=== PATIENT | female | born 1990 | race Caucasian/White ===

== ENCOUNTER → 2024-02-26 14:20 | Outpatient (REF) | payer OTHER, SELFPAY | LOC: RAD 14:20 | PROVIDERS: ATTENDING PHYSICIAN Nurse Practitioner Family; FAMILY PHYSICIAN Nurse Practitioner Family | DX: O26.851 Spotting complicating pregnancy, first trimester (principal) | CPT/HCPCS: 76801; 76817 ==

== ENCOUNTER → 2024-03-30 06:48 | Outpatient (REF) | payer OTHER, SELFPAY | LOC: PNTC 06:48 | PROVIDERS: ATTENDING PHYSICIAN Obstetrics & Gynecology | DX: Z36.0 Encounter for antenatal screening for chromosomal anomalies (principal); Z36.82 Encounter for antenatal screening for nuchal translucency | CPT/HCPCS: 36415; 76801; 76813 ==

== ENCOUNTER → 2024-05-25 14:46 | Outpatient (REF) | payer OTHER, SELFPAY | LOC: PNTC 14:46 | PROVIDERS: ATTENDING PHYSICIAN Obstetrics & Gynecology | DX: Z34.90 Encounter for supervision of normal pregnancy, unspecified, unspecified trimester (principal); O34.219 Maternal care for unspecified type scar from previous cesarean delivery | CPT/HCPCS: 76811 ==

== ENCOUNTER → 2024-06-30 16:52 | Outpatient (REF) | payer OTHER, SELFPAY | LOC: PNTC 16:52 | PROVIDERS: ATTENDING PHYSICIAN Obstetrics & Gynecology | DX: O09.529 Supervision of elderly multigravida, unspecified trimester (principal); O34.219 Maternal care for unspecified type scar from previous cesarean delivery | CPT/HCPCS: 76816 ==

== ENCOUNTER → 2024-08-11 17:18 | Outpatient (REF) | payer OTHER, SELFPAY | LOC: PNTC 17:18 | PROVIDERS: ATTENDING PHYSICIAN Obstetrics & Gynecology | DX: O09.529 Supervision of elderly multigravida, unspecified trimester (principal); O34.219 Maternal care for unspecified type scar from previous cesarean delivery | CPT/HCPCS: 76816 ==

== ENCOUNTER 2024-10-01 07:59 | Inpatient (IN) | payer OTHER, SELFPAY ==
[2024-10-01 08:15] VITALS: BP 113/65; BMI 27.6
[2024-10-01] MEDS: LR 1000 IV ×2 (08:30→13:50)
[2024-10-01 08:44] LABS: Hematocrit 33.8 % (37.0-47.0); Hemoglobin 12.1 g/dL (12.0-16.0); Mean Corp Hgb Conc. 35.8 g/dL (33.0-37.0); Mean Corpuscular Hgb 33.4 pg (27.0-31.0); Mean Corpuscular Volume 93.4 fL (81.0-99.0); Mean Platelet Volume 10.2 fL (7.4-10.4); Platelet Count 206 10^3/uL (130-400); Red Blood Cell Count 3.62 10^6/uL (4.20-5.40); Red Cell Dist. Width 12.3 % (11.5-14.5)
[2024-10-01] MEDS: TYLENOL 1000 MG PO (09:30)
[2024-10-01] MEDS: ANCEF 10 IV (09:49)
[2024-10-01] MEDS: BICITRA 30 ML PO (09:49)
[2024-10-01] MEDS: PITOCIN 30 UNITS/NSS 500 ML IV (13:47)
[2024-10-01] MEDS: TORADOL 15 MG IV ×2 (13:47→18:30)
[2024-10-01] MEDS: ZOFRAN 4 MG IV ×2 (15:11→21:51)
[2024-10-01] MEDS: REGLAN 10 MG IV (16:26)
[2024-10-02] MEDS: ZYRTEC PO (00:05)
[2024-10-02] MEDS: TORADOL 15 MG IV ×2 (00:30→06:30)
[2024-10-02 04:57] LABS: Hematocrit 26.8 % (37.0-47.0); Hemoglobin 9.4 g/dL (12.0-16.0); Mean Corp Hgb Conc. 35.1 g/dL (33.0-37.0); Mean Corpuscular Hgb 33.6 pg (27.0-31.0); Mean Corpuscular Volume 95.7 fL (81.0-99.0); Mean Platelet Volume 10.6 fL (7.4-10.4); Platelet Count 174 10^3/uL (130-400); White Blood Cell Count 14.1 10^3/uL (4.8-10.8)
[2024-10-02] MEDS: MYLICON 80 MG PO ×3 (06:26→23:30)
[2024-10-02] MEDS: ZOFRAN 4 MG IV (06:27)
--- NOTE | 2024-10-02 08:07 | W.PN.ANS.POP ---
Anesthesia Post Operative
- Anesthesia Post Op Note
Vital Signs Stable-See Nursing Note: Yes
Airway Patent: Yes
Adequate Pain Control: Yes
Change in Mental Status: No
Current Postoperative Nausea & Vomiting: No
Anesthesia Complications: No
General Anesthetic Recall: No
Unplanned Admission: No
Post Op Hydration Adequate: Yes
[2024-10-02] MEDS: MIRALAX PO (08:15)
[2024-10-02] MEDS: PRENATAL PLUS 1 TABLET PO (08:16)
[2024-10-02 12:22] LABS: Syphilis/T. pallidum Ab Reflex Negative (Negative)
[2024-10-02] MEDS: FEOSOL 325 MG PO (12:22)
[2024-10-02] MEDS: MOTRIN 600 MG PO ×2 (12:22→20:53)
[2024-10-02] MEDS: TYLENOL 650 MG PO ×3 (12:23→23:30)
[2024-10-02] MEDS: ZYRTEC 10 MG PO (20:54)
[2024-10-03] MEDS: MOTRIN 600 MG PO ×2 (03:50→10:29)
[2024-10-03] MEDS: MIRALAX 4 GRAMS PO (07:52)
[2024-10-03] MEDS: FEOSOL 325 MG PO (07:52)
[2024-10-03] MEDS: PRENATAL PLUS 1 TABLET PO (07:55)
[2024-10-03] MEDS: TYLENOL 650 MG PO ×2 (08:06→14:00)
[2024-10-03] MEDS: MYLICON 80 MG PO (08:06)
--- NOTE | 2024-10-03 12:10 | W.DS.TRANS ---
DC Summary - Chemical Lab Supervisor
-
Discharge Instructions:
Discharge Diagnosis/Procedures delivered
Diet Regular
Activity No strenuous activity
Driving Restrictions As prior to admission
Bathing Restrictions OK to Shower
Instructions:
Stand-Alone Forms: LDRP Delivery
Changes to Home Medications: No
Discharge Medications:
DC Medications w/original date entered in [facility]
Vitamin Tablet 1 tab PO DAILY Supplement 12/26/21
cetirizine 10 mg capsule (Zyrtec) 10 mg PO DAILY 10/01/24
polyethylene glycol 3350 17 gram/dose oral powder (Miralax) 4 g PO DAILY 10/01/24
acetaminophen 325 mg tablet 650 mg (2 x 325 mg) PO Q4HPRN PRN mild pain #0 tabs 10/03/24
ferrous sulfate 325 mg (65 mg iron) tablet (FeroSul) 325 mg PO DAILY #0 tabs 10/03/24
ibuprofen 600 mg tablet 600 mg PO Q6HPRN PRN cramps #0 tabs 10/03/24
Home Medication Changes
Pending Results: No
Total time spent discharging patient (in min): 25
== END 2024-10-03 15:40 | disposition home or self-care (01) | DRG 788 ==
LOC: LDRP 07:59
PROVIDERS: ADMITTING PHYSICIAN Obstetrics & Gynecology; FAMILY PHYSICIAN Nurse Practitioner Family
PROC: 10D00Z1 Extraction of Products of Conception, Low, Open Approach (ICD-10-PCS; 2024-10-01)
DX: O34.211 Maternal care for low transverse scar from previous cesarean delivery (principal); N85.8 Other specified noninflammatory disorders of uterus; Z3A.39 39 weeks gestation of pregnancy; Z37.0 Single live birth
CPT/HCPCS: 36415; 85027; 86780; 86850; 86900; 86901